=== PATIENT | male | born 1940 | race Caucasian/White ===

== ENCOUNTER 2018-12-04 22:51 | Emergency (ER) | payer MEDICARE, OTHER, SELFPAY ==
--- NOTE | 2018-12-04 22:57 | DI.CT.S_ITS ---
PROCEDURE: CT ABDOMEN PELVIS W CON INDICATIONS: vomiting, pain TECHNIQUE: After the administration of intravenous contrast, 5 mm thick sections acquired from the diaphragm to the symphysis. 5 mm coronal and sagittal reformats were acquired. For radiation dose reduction, the following was used: automated exposure control, adjustment of mA and/or kV according to patient size. COMPARISON: None. FINDINGS: Image quality: Excellent. ABDOMEN: Lung bases: Lung bases are clear. No pleural effusion. Heart size is normal. Solid organs: Liver is normal in size and enhancement. Two small well-circumscribed hepatic hypodensities most compatible with benign cysts. Gallbladder is not identified and presumably surgically absent. Biliary system is non dilated. Pancreas enhances normally. Spleen is normal in size and enhancement. No adrenal nodules. No solid renal mass. The left kidney is atrophic compared to the right. No hydronephrosis. Bilateral renal artery ostial stents. Peritoneum and bowel: There is thickening of the distal esophagus/gastric cardia. Radiodensities within the stomach are most compatible with pill fragments. Stomach is not distended. There is thickening of the gastric antrum. No bowel obstruction. There is an ecentric hyperdense nodule measuring 9 mm in the small bowel at the right midabdomen, (5/28). In the adjacent loop is adequately distended. [id number] colonic diverticulosis. The appendix is normal. No free fluid or air. Nodes and vessels: No retroperitoneal or mesenteric adenopathy by size criteria. Aorta and inferior vena cava are normal in size. Mild calcified atherosclerotic plaque. Miscellaneous: No ventral hernias. PELVIS: Genitourinary: Bladder appears unremarkable. Beam hardening limits evaluation. Miscellaneous: Small fat-containing left inguinal hernia. No adenopathy identified. Bones: No acute or suspicious bony lesions. No vertebral body compression fractures. Right hip total arthroplasty. No periprosthetic lucency identified. Left hip DJD. IMPRESSION: 1. Mild thickening of the distal esophagus. This could be due to esophagitis versus underlying esophageal malignancy. 2. Thickening of the gastric antrum. This is most commonly due to gastritis versus gastric ulcer disease. 3. Subcentimeter hyperdense nodule in the right midabdomen small bowel. This may represent a small polyp, carcinoid tumor, or GIST or a mucosal fold. Referral to gastroenterology and possible endoscopy should be considered for further evaluation of the stomach and a distal esophageal findings. If further imaging is desired to evaluate the small bowel nodule a repeat CT abdomen with noncontrast and arterial phase imaging may be helpful as initial workup. This report is disconcordant with the overnight preliminary interpretation. The small bowel nodule was not identified. Dictated by: Syed Morris M.D. on 12/05/2018 at 7:29 Approved by: Syed Morris M.D. on 12/05/2018 at 8:00
--- NOTE | 2018-12-04 22:58 | ED.ABDPAIN ---
HPI - Abdominal Pain General Chief Complaint: Abdominal Pain Stated Complaint: ABD Pain Time Seen by Provider: 12/04/18 22:56 Source: patient and EMS Mode of arrival: EMS Limitations: no limitations History of Present Illness HPI narrative: Patient is a 78-year-old male who presents with vomiting. He does started today he has had vomiting like this in the past but not quite this severe. He is unable to keep anything down. He constantly has abdominal issues. He has had diarrhea but that is not unusual for him. He has no fever chills. He does not feel in his abdomen is distended. MD complaint: abdominal pain Onset (ago): hour(s) Pain Consistency: constant Location: diffuse Quality: cramping Related Data Previous Rx's Medication Instructions Recorded omeprazole 20 mg PO DAILY #14 cap 12/05/18 ondansetron 4 mg PO Q8H PRN #10 tab 12/05/18 Review of Systems Review of Systems Narrative: GENERAL: Denies chills, fatigue, malaise, fever, sweats, travel HEENT: Denies sinus pain, ear pain, sore throat, difficulty swallowing, neck pain RESPIRATORY: Denies dyspnea, cough, wheezing, hemoptysis, sputum. CARDIOVASCULAR: Denies chest pain, palpitations, orthopnea, edema GASTROINTESTINAL: See HPI : Denies dysuria, frequency, incontinence, hematuria, urinary retention, flank pain. MUSCULOSKELETAL: Denies weakness, joint pain, or bony pain SKIN: No rash, no erythema, no pruritus NEUROLOGIC: Denies weakness, dizziness, headache, numbness, change in speech, confusion PSYCHIATRIC: No concerning psychosocial issues. 12 point review of systems is negative except for those stated above and HPI PFSH Social History Smoking Status: Never smoker Social History Smoking Status: Never smoker Exam Initial Vital Signs Initial Vital Signs: Vital Signs Temperature 98.0 F 12/04/18 23:00 Pulse Rate 57 L 12/04/18 23:00 Respiratory Rate 16 12/04/18 23:00 Blood Pressure 169/81 H 12/04/18 23:00 Pulse Oximetry 97 12/04/18 23:00 GENERAL: Alert male who appears in mild discomfort HEENT: Head atraumatic,EOMI, pupils reactive, CARDIOVASCULAR: Regular rate and rhythm without murmurs, rubs or gallops. RESPIRATORY: Breath sounds equal bilaterally, no wheezes rales or rhonchi. ABDOMEN: Soft, mild diffuse tenderness no guarding no rebound : No CVA tenderness EXTREMITIES: Normal range of motion, no clubbing or edema. Neurovascularly intact NEUROLOGICAL: Alert and oriented x4.Normal gait and speech. Cranial nerves II through XII grossly intact. SKIN: Warm, dry, no laceration, no petechiae, no rashes or lesions. Course Orders Ordered: ED Orders 12/04/18 22:57 CT abdomen pelvis w con Stat 12/04/18 23:00 EKG-12 Lead Stat 12/04/18 23:18 Complete Blood Count AUTO DIFF Stat Comprehensive Metabolic Panel Stat Lipase Stat Troponin & CK Cardiac Panel Stat 12/04/18 23:20 EKG-12 Lead Stat 12/05/18 00:48 Urinalysis and Microscopic Stat Discontinued Medications Hydromorphone HCl (Dilaudid) 0.5 mg IV NOW ONE Stop: 12/04/18 22:57 Last Admin: 12/04/18 23:14 Dose: 0.5 mg Documented by: EMMIE Sodium Chloride (Normal Saline 0.9%) 1,000 mls @ 1,000 mls/hr IV CONT ADDI Last Infusion: 12/05/18 01:00 Dose: 0 mls/hr Documented by: Admin: 12/04/18 23:13 Dose: 1,000 mls/hr Documented by: EMMIE Ondansetron HCl (Zofran Odt Prepack) 1 bottle MISC SEEINSTR ONE Stop: 12/05/18 01:16 Last Admin: 12/05/18 01:18 Dose: 1 bottle Documented by: SHANNANOTEM Pantoprazole Sodium (Protonix) 40 mg IV NOW ONE Stop: 12/04/18 22:57 Last Admin: 12/04/18 23:14 Dose: 40 mg Documented by: EMMIE Vital Signs Vital signs: Vital Signs - 8 hr 12/04/18 23:00 12/04/18 23:20 12/05/18 01:01 Temperature 98.0 F Pulse Rate 57 L 61 61 Respiratory Rate 16 16 16 Blood Pressure 169/81 H Blood Pressure [Left Arm] 151/75 H 129/67 Pulse Oximetry 97 99 98 MDM - Abdominal Pain Lab Data Attestation: I reviewed the patient's lab results. Result diagrams: 12/04/18 23:18 12/04/18 23:18 Labs: Lab Results 12/04/18 12/04/18 12/04/18 Range/Units 23:18 23:18 23:18 WBC 12.9 H (4.5-11.0) X10^3/uL RBC 4.87 (4.5-5.9) X10^6/uL Hgb 15.4 (13.5-17.5) g/dL Hct 45.0 (41-53) % MCV 92.4 (80-100) fL MCH 31.7 (26-34) PG MCHC 34.3 (30-36) % RDW 12.9 (11.6-14.8) % Plt Count 162 (150-400) X10^3/uL Neut % (Auto) 89.5 H (50-75) % Lymph % (Auto) 3.8 L (25-40) % [place] % (Auto) 6.3 (3-14) % Eos % (Auto) 0.1 L (2-4) % Baso % (Auto) 0.3 (0-2) % Neut # (Auto) 95899 H (6280-5005) /uL Lymph # (Auto) 500 L (4613-2067) /uL [place] # (Auto) 800 (0-900) /uL Eos # (Auto) 0 (0-450) /uL Baso # (Auto) 0 (0-100) /uL Sodium 141 (137-145) mmol/L Potassium 3.7 (3.4-5.1) mmol/L Chloride 101 (98-107) mmol/L Carbon Dioxide 31 (22-32) mmol/L BUN 20 (9-20) mg/dL Creatinine 1.10 (0.66-1.25) mg/dL Estimated GFR > 60.0 (>60) mL/min BUN/Creatinine Ratio 18.2 (6-22) Glucose 161 H (80-110) mg/dL Calcium 9.0 (8.4-10.2) mg/dL Total Bilirubin 0.7 (0.2-1.3) mg/dL AST 25 (17-59) IU/L ALT 25 (21-72) IU/L Alkaline Phosphatase 115 (38-126) U/L Total Creatine Kinase 43 L (55-170) U/L CK-MB (CK-2) TNP CK-MB (CK-2) Rel Index TNP Troponin I < 0.012 (0.01-0.034) ng/mL Total Protein 7.2 (6.3-8.2) g/dL Albumin 4.0 (3.5-5.0) g/dL Globulin 3.2 (1.7-4.1) g/dL Albumin/Globulin Ratio 1.3 (1.0-2.8) Lipase 85 (23-300) U/L Urine Color Urine Appearance Urine pH (4.5-8.0) Ur Specific [place] (1.000-1.035) Urine Protein (Negative) Urine Glucose (UA) (Negative) g/dL Urine Ketones (NEGATIVE) Urine Occult Blood (Negative) Urine Nitrate (Negative) Urine Bilirubin (NEGATIVE) Urine Urobilinogen (0.2) E.U./dL Ur Leukocyte Esterase (NEGATIVE) Urine RBC (0-5/HPF) Urine WBC (0-5/HPF) Urine Bacteria (None) Ur Culture Indicated? 12/05/18 Range/Units 00:48 WBC (4.5-11.0) X10^3/uL RBC (4.5-5.9) X10^6/uL Hgb (13.5-17.5) g/dL Hct (41-53) % MCV (80-100) fL MCH (26-34) PG MCHC (30-36) % RDW (11.6-14.8) % Plt Count (150-400) X10^3/uL Neut % (Auto) (50-75) % Lymph % (Auto) (25-40) % [place] % (Auto) (3-14) % Eos % (Auto) (2-4) % Baso % (Auto) (0-2) % Neut # (Auto) (4960-7523) /uL Lymph # (Auto) (2855-3837) /uL [place] # (Auto) (0-900) /uL Eos # (Auto) (0-450) /uL Baso # (Auto) (0-100) /uL Sodium (137-145) mmol/L Potassium (3.4-5.1) mmol/L Chloride (98-107) mmol/L Carbon Dioxide (22-32) mmol/L BUN (9-20) mg/dL Creatinine (0.66-1.25) mg/dL Estimated GFR (>60) mL/min BUN/Creatinine Ratio (6-22) Glucose (80-110) mg/dL Calcium (8.4-10.2) mg/dL Total Bilirubin (0.2-1.3) mg/dL AST (17-59) IU/L ALT (21-72) IU/L Alkaline Phosphatase (38-126) U/L Total Creatine Kinase (55-170) U/L CK-MB (CK-2) CK-MB (CK-2) Rel Index Troponin I (0.01-0.034) ng/mL Total Protein (6.3-8.2) g/dL Albumin (3.5-5.0) g/dL Globulin (1.7-4.1) g/dL Albumin/Globulin Ratio (1.0-2.8) Lipase (23-300) U/L Urine Color Yellow Urine Appearance Clear Urine pH 7.5 (4.5-8.0) Ur Specific [place] 1.010 (1.000-1.035) Urine Protein Negative (Negative) Urine Glucose (UA) Negative (Negative) g/dL Urine Ketones 1+ H (NEGATIVE) Urine Occult Blood Negative (Negative) Urine Nitrate Negative (Negative) Urine Bilirubin Negative (NEGATIVE) Urine Urobilinogen 0.2 (0.2) E.U./dL Ur Leukocyte Esterase Negative (NEGATIVE) Urine RBC 0-1/hpf (0-5/HPF) Urine WBC 0-1/hpf (0-5/HPF) Urine Bacteria None seen (None) Ur Culture Indicated? Cult not indicated Point of care testing: Urine Dip Bedside Urine Glucose Negative Bedside Urine Bilirubin - Negative Bedside Urine Ketone ++ 40 Urine Specific [place] 1.010 Bedside Urine Occult Blood - Negative Bedside Urine pH 8.0 Bedside Urine Protein +/- 15 Bedside Urine Urobilinogen +/- 1mg Bedside Urine Nitrite - Negative Bedside Urine Leukocytes - Negative Esterase Imaging Data CT scan - abdomen: Radiologist's impression: Moderate thickening of distal esophagus. This can be seen in esophagitis versus neoplasm. ECG Data Attestation: I personally reviewed and interpreted this ECG as follows: Prior ECG tracings: not available for review Interpretation: Rhythm rate [address] changes no priors to compare p.r. interval 216 MDM Narrative Medical decision making narrative: The patient has not vomited since he has had Zofran. Not tolerating some ice chips. He does have thickening of the esophagus on CT which may have contributed to his vomiting. He was given Protonix. He has a GI doctor in [place] who he sees a fairly regular basis and has for number of years. He has had chronic ongoing GI problems. At this time no indication for admission. He is ambulatory without difficulty. He is given Zofran prepack and prescription to go home with. Discharge Plan Departure Patient Disposition: Home Clinical Impression: Esophagitis Discharge Date/Time: 12/05/18 01:27 Instructions: DI for Esophagitis Activity Restrictions/Additional Instructions: *You have been diagnosed with esophagitis *What to do: Thickening and inflammation of the esophagus may have caused some vomiting. *Continue to take medications as directed Omeprazole 20 mg once a day Zofran 4 mg every 8 hours if needed for nausea vomiting *Follow up with your primary care provider in 2-3 days *Return to ER if you should have inability to tolerate fluids, increasing pain or any new, worsening or concerning symptoms Prescriptions: New omeprazole 20 mg capsule,delayed release(DR/EC) 20 mg PO DAILY Qty: 14 RF: 0 ondansetron 4 mg tablet,disintegrating 4 mg PO Q8H PRN (Reason: nausea and vomiting) Qty: 10 RF: 0
[2018-12-04 23:00] VITALS: BP 169/81; PULSE 57; RESP 16; TEMP 36.7; O2SAT 97; BMI 25.0
[2018-12-04] MEDS: SODIUM CHLORIDE 0.9% 1,000 ML 1000 ML IV (23:13)
[2018-12-04] MEDS: PANTOPRAZOLE 40 MG VIAL IV (23:14)
[2018-12-04] MEDS: HYDROMORPHONE 1 MG INJ 0.5 MG IV (23:14)
[2018-12-04 23:20] VITALS: BP 151/75; PULSE 61; RESP 16; O2SAT 99
[2018-12-04 23:31] LABS: Add Manual Diff / Slide Review NO; Basophils Absolute Auto 0 /uL (0-100); Basophils Percent Auto 0.3 % (0-2); Eosinophils Absolute Auto 0 /uL (0-450); Eosinophils Percent Auto 0.1 % (2-4); Hemoglobin 15.4 g/dL (13.5-17.5); Lymphocytes Absolute Auto 500 /uL (1100-4500); Lymphocytes Percent Auto 3.8 % (25-40); Mean Corpuscular HGB Conc 34.3 % (30-36); Mean Corpuscular Hemoglobin 31.7 PG (26-34); Mean Corpuscular Volume 92.4 fL (80-100); Monocytes Absolute Auto 800 /uL (0-900); Monocytes Percent Auto 6.3 % (3-14); Neutrophils Absolute Auto 11500 /uL (1500-7000); Neutrophils Percent Auto 89.5 % (50-75); Platelet Count 162 X10^3/uL (150-400); Red Blood Cell Count 4.87 X10^6/uL (4.5-5.9); Red Cell Distribution Width 12.9 % (11.6-14.8); White Blood Cell Count 12.9 X10^3/uL (4.5-11.0)
[2018-12-04 23:39] LABS: Creatine Kinase 43 U/L (55-170)
[2018-12-04 23:40] LABS: Alanine Aminotransferase 25 IU/L (21-72); Albumin Globulin Ratio 1.3 (1.0-2.8); Alkaline Phosphatase 115 U/L (38-126); Aspartate Aminotransferase 25 IU/L (17-59); BUN Creatinine Ratio 18.2 (6-22); Bilirubin Total 0.7 mg/dL (0.2-1.3); Blood Urea Nitrogen 20 mg/dL (9-20); Carbon Dioxide 31 mmol/L (22-32); Chloride 101 mmol/L (98-107); Estimated Glomerular Filt Rate > 60.0 mL/min (>60); Globulin 3.2 g/dL (1.7-4.1); Glucose 161 mg/dL (80-110); HEMOLYSIS < 15 (0-50); Lipase 85 U/L (23-300); Potassium 3.7 mmol/L (3.4-5.1); Sodium 141 mmol/L (137-145); Total Protein 7.2 g/dL (6.3-8.2)
[2018-12-04 23:52] LABS: Troponin I < 0.012 ng/mL (0.01-0.034)
[2018-12-05 01:01] VITALS: BP 129/67; PULSE 61; RESP 16; O2SAT 98
[2018-12-05 01:04] LABS: Bacteria Urine None Seen
[2018-12-05 01:06] LABS: Appearance Urine UA CLEAR; Bilirubin Urine UA NEGATIVE (NEGATIVE); Color Urine UA YELLOW; Glucose Urine UA NEGATIVE (Negative); Ketones Urine UA 1+ (NEGATIVE); Leukocyte Esterase Urine UA NEGATIVE (NEGATIVE); Nitrite Urine UA NEGATIVE (Negative); Occult Blood Urine UA NEGATIVE (Negative); Protein Urine UA NEGATIVE (Negative); Urobilinogen Urine UA 0.2 E.U./dL (0.2); pH Urine UA 7.5 (4.5-8.0)
[2018-12-05 01:14] LABS: Culture Indicated Urine Cult Not Indicated; RBC Urine 0-1/HPF (0-5/HPF); WBC Urine 0-1/HPF (0-5/HPF)
[2018-12-05] MEDS: ONDANSETRON 4 MG ODT PREPACK 1 BOTTLE MISC (01:18)
--- NOTE | 2018-12-05 01:22 | PC.NURSE ---
He was able to tolerate ice chips with out n/v.He ambulated with a steady gait.
== END 2018-12-05 01:27 | disposition home or self-care (01) ==
PROVIDERS: Emergency Provider Emergency Medicine
DX: K20.9 Esophagitis, unspecified (principal); R10.9 Unspecified abdominal pain
CPT/HCPCS: 36415; 36591; 74177; 80053; 81001; 81003; 82550; 83690; 84484; 85025; 93005; 96361; 96374; 96375; 99283; 99285; C9113; J1170; Q9967